=== PATIENT | female | born 1975 | race Hispanic/Latino ===

== ENCOUNTER 2019-03-20 13:40 | Emergency (ER) | payer MEDICAID, OTHER ==
[2019-03-20 14:31] LABS: APPEARANCE,URINE Cloudy (CLEAR); BILIRUBIN,URINE Negative (NEGATIVE); COLOR,URINE Yellow (YELLOW); GLUCOSE, URINE (UA) Negative (NEGATIVE); KETONES,URINE Negative (NEGATIVE); LEUKOCYTE ESTERASE ,URINE Trace (NEGATIVE); NITRATE,URINE Negative (NEGATIVE); OCCULT BLOOD,URINE Trace (NEGATIVE); PROTEIN,URINE Negative (NEGATIVE)
[2019-03-20 14:35] LABS: BASOPHILS % (AUTO) 0.5 % (0.0-5.0); HEMATOCRIT 32.8 % (36-48); LYMPHOCYTES % (AUTO) 18.3 % (21.0-51.0); MEAN CORPUSCULAR HEMOGLOBIN 21.7 pg (27.0-33.0); MEAN CORPUSCULAR HGB CONC 31.7 g/dL (32.0-36.0); MEAN CORPUSCULAR VOLUME 68.4 fL (79-99); MONOCYTES % (AUTO) 4.2 % (3.0-13.0); PLATELET COUNT (AUTO) 342 K/uL (130-400); RED CELL DISTRIBUTION WIDTH 17.3 % (11.0-15.5)
[2019-03-20 14:41] LABS: BACTERIA,URINE Moderate /HPF (None Seen); MUCUS,URINE Few LPF (None Seen)
[2019-03-20 14:46] LABS: CREATININE 0.8 mg/dL (0.5-1.5); POTASSIUM 3.5 mmol/L (3.5-5.1)
[2019-03-20 14:52] LABS: ALBUMIN 3.3 g/dL (3.5-5.0); BILIRUBIN,TOTAL 0.2 mg/dL (0.2-1.0); TOTAL PROTEIN, SERUM 7.4 g/dL (6.0-8.3)
[2019-03-20] MEDS ORDERED: KETOROLAC TROMETHAMINE 30MG/ML ONE (15:43)
== END 2019-03-20 17:26 | disposition home or self-care (01) ==
LOC: EDH 13:40
DX: K57.90 Diverticulosis of intestine, part unspecified, without perforation or abscess without bleeding (principal); I10 Essential (primary) hypertension
CPT/HCPCS: 36415; 74176; 76856; 80053; 81001; 81025; 85025; 96372; 99285; J1885

== ENCOUNTER 2020-11-06 13:36 | Emergency (ER) | payer SELFPAY ==
[~2020-11-06] VITALS: Ht 162.6 cm; Wt 81.6 kg
[2020-11-06 14:10] LABS: APPEARANCE,URINE Clear (CLEAR); BILIRUBIN,URINE Negative (NEGATIVE); COLOR,URINE Yellow (YELLOW); GLUCOSE, URINE (UA) 250 mg/dL (NEGATIVE); KETONES,URINE Trace mg/dL (NEGATIVE); LEUKOCYTE ESTERASE ,URINE Trace (NEGATIVE); NITRATE,URINE Negative (NEGATIVE); OCCULT BLOOD,URINE Moderate (NEGATIVE); PROTEIN,URINE POS 2+ mg/dL (NEGATIVE)
[2020-11-06 14:11] VITALS: BP 176/80
[2020-11-06 14:31] LABS: BASOPHILS % (AUTO) 0.3 % (0.0-5.0); EOSINOPHILS % (AUTO) 0.6 % (0.0-8.0); HEMATOCRIT 32.6 % (36-48); LYMPHOCYTES % (AUTO) 12.6 % (21.0-51.0); MEAN CORPUSCULAR HEMOGLOBIN 19.1 pg (27.0-33.0); MEAN CORPUSCULAR HGB CONC 28.5 g/dL (32.0-36.0); MEAN CORPUSCULAR VOLUME 66.8 fL (79-99); MONOCYTES % (AUTO) 5.8 % (3.0-13.0); NEUTROPHILS % (AUTO) 80.4 % (40.0-77.0); PLATELET COUNT (AUTO) 398 K/uL (130-400); RED BLOOD CELL COUNT(AUTO) 4.88 MIL/uL (4.00-5.50); RED CELL DISTRIBUTION WIDTH 19.3 % (11.0-15.5); WHITE BLOOD COUNT (AUTO) 15.4 K/uL (4.8-10.8)
[2020-11-06 14:32] LABS: BACTERIA,URINE Moderate /HPF (None Seen); MUCUS,URINE Many LPF (None Seen); SQUAMOUS EPITHELIAL CELL,UR Many /HPF (0-2)
[2020-11-06 14:34] LABS: CREATININE 0.7 mg/dL (0.5-1.5); POTASSIUM 3.4 mmol/L (3.5-5.1)
[2020-11-06 14:39] LABS: ALBUMIN 3.1 g/dL (3.5-5.0); BILIRUBIN,TOTAL 0.2 mg/dL (0.2-1.0); TOTAL PROTEIN, SERUM 7.4 g/dL (6.0-8.3)
[2020-11-06] MEDS ORDERED: IBUP-2070 PO (15:13)
[2020-11-06] MEDS ORDERED: CEPH500B PO (15:13)
[2020-11-06] MEDS ORDERED: LIDOCAINE HCL-MPF 1% 2ML VIAL ONE (15:37)
[2020-11-06] MEDS ORDERED: CEFTRIAXONE 1G VIAL ONE (15:38)
[2020-11-06 15:59] VITALS: BP 173/72
[2020-11-06] MEDS ORDERED: LIDOCAINE HCL-MPF 1% 2ML VIAL IM SCH (16:00)
[2020-11-06] MEDS ORDERED: CEFTRIAXONE 1G VIAL IM ONE (16:00)
== END 2020-11-06 16:04 | disposition home or self-care (01) ==
LOC: EDH 13:36
DX: N39.0 Urinary tract infection, site not specified (principal); R73.9 Hyperglycemia, unspecified; R53.83 Other fatigue; Z79.1 Long term (current) use of non-steroidal anti-inflammatories (NSAID)
CPT/HCPCS: 36415; 80053; 81001; 85025; 87088; 96372; 99283; J0696; J3490

== ENCOUNTER 2021-10-10 09:53 | Emergency (ER) | payer OTHER ==
[~2021-10-10] VITALS: Ht 160 cm; Wt 81.6 kg
[~2021-10-10 09:53] MED LIST: CEPH500B PO; IBUP-2070 PO
[2021-10-10 10:29] LABS: BASOPHILS % (AUTO) 0.3 % (0.0-5.0); EOSINOPHILS % (AUTO) 0.8 % (0.0-8.0); HEMATOCRIT 35.8 % (36-48); LYMPHOCYTES % (AUTO) 13.7 % (21.0-51.0); MEAN CORPUSCULAR HEMOGLOBIN 19.5 pg (27.0-33.0); MEAN CORPUSCULAR HGB CONC 29.1 g/dL (32.0-36.0); MEAN CORPUSCULAR VOLUME 67.2 fL (79-99); MONOCYTES % (AUTO) 3.8 % (3.0-13.0); NEUTROPHILS % (AUTO) 81.1 % (40.0-77.0); PLATELET COUNT (AUTO) 333 K/uL (130-400); RED BLOOD CELL COUNT(AUTO) 5.33 MIL/uL (4.00-5.50); RED CELL DISTRIBUTION WIDTH 20.9 % (11.0-15.5); WHITE BLOOD COUNT (AUTO) 11.5 K/uL (4.8-10.8)
[2021-10-10 10:40] LABS: CREATININE 0.7 mg/dL (0.5-1.5); POTASSIUM 3.9 mmol/L (3.5-5.1)
[2021-10-10 10:45] LABS: ALBUMIN 3.3 g/dL (3.5-5.0); BILIRUBIN,TOTAL 0.2 mg/dL (0.2-1.0); TOTAL PROTEIN, SERUM 7.9 g/dL (6.0-8.3)
[2021-10-10 11:08] LABS: APPEARANCE,URINE SL CLOUDY (CLEAR); BILIRUBIN,URINE NEGATIVE (NEGATIVE); COLOR,URINE YELLOW (YELLOW); GLUCOSE, URINE (UA) NEGATIVE (NEGATIVE); KETONES,URINE NEGATIVE (NEGATIVE); LEUKOCYTE ESTERASE ,URINE TRACE (NEGATIVE); NITRATE,URINE NEGATIVE (NEGATIVE); OCCULT BLOOD,URINE MODERATE (NEGATIVE); PROTEIN,URINE 30 mg/dL (NEGATIVE); UROBILINOGEN,URINE 0.2 mg/dL (0.2-1.0)
[2021-10-10 11:21] LABS: HCG,QUAL RESULT NEGATIVE (NEGATIVE)
[2021-10-10 11:24] LABS: BACTERIA,URINE Rare /HPF (None Seen); HYALINE CASTS, URINE 0-1 /LPF (0-1 /LPF); RBC,URINE 0-1 /HPF (0-1); SQUAMOUS EPITHELIAL CELL,UR Few /HPF (0-2)
[2021-10-10] MEDS ORDERED: ONDANSETRON 4MG INJ IVP ONE (12:30)
[2021-10-10] MEDS ORDERED: 0.9%NACL 1000ML 1,000 ML IV ONE (12:30)
[2021-10-10] MEDS ORDERED: MECLIZINE HCL 25 MG TABLET PO ONE (12:30)
[2021-10-10 13:25] VITALS: BP 136/63
[2021-10-10] MEDS ORDERED: MECL-226 PO (13:51)
[2021-10-10] MEDS ORDERED: ONDA4TAB10 PO (13:51)
== END 2021-10-10 14:07 | disposition home or self-care (01) ==
LOC: EDH 09:53
DX: H81.10 Benign paroxysmal vertigo, unspecified ear (principal); I10 Essential (primary) hypertension; Z79.1 Long term (current) use of non-steroidal anti-inflammatories (NSAID); Z79.899 Other long term (current) drug therapy
CPT/HCPCS: 36415; 80053; 81001; 81025; 85025; 93005; 96361; 96374; 99284; J2405; J7030

== ENCOUNTER 2023-02-19 10:02 | Emergency (ER) | payer OTHER, SELFPAY ==
[~2023-02-19] VITALS: Ht 167.6 cm; Wt 95.3 kg
[~2023-02-19 10:02] MED LIST changes: +MECL-226 PO; +ONDA4TAB10 PO
[2023-02-19] MEDS ORDERED: LACTATED RINGERS 1000ML 1,000 ML IV ONE (10:30)
[2023-02-19 10:33] LABS: APPEARANCE,URINE CLEAR (CLEAR); BILIRUBIN,URINE NEGATIVE (NEGATIVE); COLOR,URINE COLORLESS (YELLOW); GLUCOSE, URINE (UA) NEGATIVE (NEGATIVE); KETONES,URINE NEGATIVE (NEGATIVE); LEUKOCYTE ESTERASE ,URINE NEGATIVE Leu/uL (NEGATIVE); NITRATE,URINE NEGATIVE (NEGATIVE); OCCULT BLOOD,URINE MODERATE (NEGATIVE); PROTEIN,URINE NEGATIVE (NEGATIVE); UROBILINOGEN,URINE 0.2 mg/dL (0.2-1.0)
[2023-02-19 10:35] LABS: ADD UA MICROSCOPIC YES
[2023-02-19 10:36] LABS: BACTERIA,URINE RARE /HPF (None Seen); MUCUS,URINE RARE LPF (None Seen); SQUAMOUS EPITHELIAL CELL,UR RARE /HPF (0-2); WBC,URINE 0-1 /HPF (0-1)
[2023-02-19 10:37] LABS: AMPHET/METH SCREEN,URINE NEGATIVE (NEGATIVE); BARBITURATE SCREEN, URINE NEGATIVE (NEGATIVE); BENZODIAZEPINES SCREEN,URINE NEGATIVE (NEGATIVE); CANNABINOID SCREEN,URINE NEGATIVE (NEGATIVE); COCAINE SCREEN,URINE NEGATIVE (NEGATIVE); OPIATE SCREEN,URINE NEGATIVE (NEGATIVE); PHENCYCLIDINE SCREEN,URINE NEGATIVE (NEGATIVE)
[2023-02-19 10:49] LABS: BASOPHILS # (AUTO) 0.04 K/uL (0.00-0.20); BASOPHILS % (AUTO) 0.4 % (0.0-5.0); EOSINOPHILS # (AUTO) 0.14 K/uL (0.00-0.70); EOSINOPHILS % (AUTO) 1.4 % (0.0-8.0); HEMATOCRIT 29.4 % (36-48); IMMATURE GRANULOCYTE ABSOLUTE 0.05 K/uL (0-1); LYMPHOCYTES % (AUTO) 20.3 % (21.0-51.0); MEAN CORPUSCULAR HGB CONC 27.6 g/dL (32.0-36.0); MEAN CORPUSCULAR VOLUME 61.8 fL (79-99); MONOCYTES # (AUTO) 0.6 K/uL (0.1-1.0); MONOCYTES % (AUTO) 5.6 % (3.0-13.0); NEUTROPHILS # (AUTO) 7.1 K/uL (1.8-7.7); NEUTROPHILS % (AUTO) 71.8 % (40.0-77.0); PLATELET COUNT (AUTO) 312 K/uL (130-400); RED BLOOD CELL COUNT(AUTO) 4.76 MIL/uL (4.00-5.50); RED CELL DISTRIBUTION WIDTH 20.8 % (11.0-15.5); WHITE BLOOD COUNT (AUTO) 9.8 K/uL (4.8-10.8)
[2023-02-19 11:00] LABS: CREATININE 0.6 mg/dL (0.5-1.5); POTASSIUM 3.6 mmol/L (3.5-5.1)
[2023-02-19 11:05] LABS: ALBUMIN 3.2 g/dL (3.5-5.0); B-TYPE NATRIURETIC PEPTIDE 70 pg/mL (0-100); BILIRUBIN,TOTAL 0.2 mg/dL (0.2-1.0); TOTAL PROTEIN, SERUM 7.2 g/dL (6.0-8.3)
[2023-02-19] MEDS ORDERED: DIAZEPAM 2 MG TAB PO ONE (11:30)
[2023-02-19] MEDS ORDERED: FERR324T4 PO (11:31)
[2023-02-19] MEDS ORDERED: DOCU-116 PO (11:31)
[2023-02-19] MEDS ORDERED: CLONIDINE HCL 0.1 MG TABLET ONE (12:03)
[2023-02-19 12:26] VITALS: BP 163/80; PULSE 74; RESP 18; O2SAT 99
[2023-02-19] MEDS ORDERED: CLONIDINE HCL 0.1 MG TABLET PO ONE (12:30)
== END 2023-02-19 12:26 | disposition home or self-care (01) ==
LOC: EDH 10:02
DX: F41.9 Anxiety disorder, unspecified (principal); N93.8 Other specified abnormal uterine and vaginal bleeding; D64.9 Anemia, unspecified; I10 Essential (primary) hypertension; Z79.899 Other long term (current) drug therapy; Z98.890 Other specified postprocedural states
CPT/HCPCS: 99285; 96360; 71045; 82550; 84484; 80053; 83880; 80305; 85025; 36415; 93005; 81001; J7120

== ENCOUNTER 2024-05-14 10:22 | Emergency (ER) | payer BC ==
[~2024-05-14] VITALS: Ht 162.6 cm; Wt 85.7 kg
[~2024-05-14 10:22] MED LIST changes: +DOCU-116 PO; +FERR324T4 PO; +ONDA-243 PO; -ONDA4TAB10 PO
--- NOTE | 2024-05-14 11:08 | ERN ---
ED Note History of Present Illness Stated Complaint: TOOTHACHE Chief Complaint: Multiple Complaints Time Seen by MD: 10:27 Time Seen by Midlevel: 10:33 Dictation: 48-year-old female coming in complaining of tooth ache that started at 6:30 a.m. in the morning. Patient also states she is having chest pain, shortness a breath that also started along with the or Sunday. Patient states her blood pressure at home was in the 200s. Patient states before coming to the ER if she took her lisinopril. Denies having any recent fevers, nausea, vomiting, cough congestion. Allergies: Coded Allergies: No Known Allergies (Unverified Allergy, Unknown, 11/06/20) Home Meds Active Scripts Amoxicillin/Potassium Clav (Amox Tr-K Clv 875-125 mg Tab) 875 Mg-125 Mg Tablet, 1 TAB PO BID for 10 Days, #20 TAB 0 Refills Prov:HERMES LEWIS NP 05/14/24 Docusate Sodium (Colace) 100 Mg Capsule, 100 MG PO BID for 10 Days, #20 CAP Prov:ELLY ARANDA MD 02/19/23 Ferrous Sulfate (Ferrous Sulfate) 324 Mg (65 Mg Iron) Tablet.dr, 324 MG PO DAILY for 7 Days, #7 TAB Prov:ELLY ARANDA MD 02/19/23 Ondansetron (Ondansetron Odt) 4 Mg Tab.rapdis, 4 MG PO TID, #15 TAB Prov:RADHA CHISHOLMP 10/10/21 Meclizine HCl (Meclizine HCl) 12.5 Mg Tablet, 25 MG PO TID PRN for DIAPER RASH, #15 TAB Prov:RAHDA CHISHOLMP 10/10/21 Ibuprofen (Ibuprofen) 600 Mg Tablet, 600 MG PO Q6H PRN for PAIN, #15 TAB Prov:FARZAD ECHEVERRIA NP 11/06/20 Cephalexin Monohydrate (Keflex) 500 Mg Cap, 500 MG PO TID for 10 Days, #30 CAP 0 Refills Prov:FARZAD ECHEVERRIA NP 11/06/20 Past Medical History Past Medical History: Hypertension Surgical History: Social History: Negative Review of System Dictation Constitutional: Negative for fever,chills, and weight loss Eyes: Negative for injury, pain,redness, and discharge ENT: Negative for injury,pain or swelling, complaining of right upper tooth pain Cardiovascular: Complaining of chest pain, palpitations, and edema Respiratory: Complaining of shortness a breath, cough, and wheezing, Abdomen/GI: Negative for abdominal pain, nausea, vomiting, diarrhea, and constipation Back: Negative for injury and pain : Negative for injury, bleeding and discharge MS/Extremity: Negative for injury and deformity Skin: Negative for rash, and discoloration Neuro: Negative for headache, weakness, numbness, tingling, and seizure Psych: Negative for suicide ideation, homicidal ideation, and hallucinations Review of Systems: was completed Initial Vital Sign VS Vital Signs Date Time Temp Pulse Resp B/P (MAP) Pulse Ox O2 Delivery O2 Flow Rate FiO2 05/14/24 10:24 98.4 93 20 166/95 99 0 05/14/24 12:27 Room Air* 21 Physical Exam Dictation General: awake, alert, NAD Head/Face: Normocephalic, atraumatic Eyes: PERRL, EOMI, vision at baseline ENT: oral cavity clear, TMs clear, no signs of infection Neck: Trachea midline, supple, no nuchal rigidity Cardiovascular: RRR, normal S1/S2, No MRGs, no JVD Respiratory: CTAB, no respiratory distress, No rales or wheezes Abdomen: Soft, non-tender, non-distended, normal bowel sounds, no guarding or rebound. Skin: Warm, dry, normal turgor, no rash MS/Extremity: Pulses equal, no cyanosis, neurovascular intact, FROM Neuro: COAx4, GCS 15, strength 5/5, CN 2-12 intact, normal cerebellar exam, normal gait, Psych: Normal behavior, mood, and affect normal Results (Laboratory/Radiology) Laboratory/Radiology Laboratory Tests Test 05/14/24 11:22 White Blood Count 11.2 K/uL (4.8-10.8) H Red Blood Count 4.49 MIL/uL (4.00-5.50) Hemoglobin 8.6 g/dL (12.0-16.0) L Hematocrit 30.5 % (36-48) L Mean Corpuscular Volume 67.9 fL (79-99) L Mean Corpuscular Hemoglobin 19.2 pg (27.0-33.0) L Mean Corpuscular Hemoglobin Concent 28.2 g/dL (32.0-36.0) L Red Cell Distribution Width 18.6 % (11.0-15.5) H Platelet Count 426 K/uL (130-400) H Mean Platelet Volume 10.0 fL (7.5-10.5) Immature Granulocyte % (Auto) 0.4 % (0-1) Neutrophils (%) (Auto) 80.2 % (40.0-77.0) H Lymphocytes (%) (Auto) 14.2 % (21.0-51.0) L Monocytes (%) (Auto) 4.3 % (3.0-13.0) Eosinophils (%) (Auto) 0.5 % (0.0-8.0) Basophils (%) (Auto) 0.4 % (0.0-5.0) Neutrophils # (Auto) 9.0 K/uL (1.8-7.7) H Lymphocytes # (Auto) 1.6 K/uL (1.0-4.8) Monocytes # (Auto) 0.5 K/uL (0.1-1.0) Eosinophils # (Auto) 0.06 K/uL (0.00-0.70) Basophils # (Auto) 0.04 K/uL (0.00-0.20) Absolute Immature Granulocyte (auto 0.05 K/uL (0-1) Nucleated Red Blood Cells 0.0 % (0.0-0.19) Sodium Level 134 mmol/L (136-145) L Potassium Level 3.9 mmol/L (3.5-5.1) Chloride Level 99 mmol/L (101-111) L Carbon Dioxide Level 27 mmol/L (21-32) Blood Urea Nitrogen 11 mg/dL (7-18) Creatinine 0.7 mg/dL (0.5-1.0) Glomerular Filtration Rate Calc 107 mL/min (>90) Random Glucose 145 mg/dL (70-105) H Total Calcium 9.0 mg/dL (8.5-10.1) Troponin I High Sensitivity 6 ng/L (4-50) Labs Reviewed?: Yes EKG Comment: Date:05/14/24 Time:1058 Ventricular rate:89 MD interval:167 QRS duration:21 QT/QTc:359/438 EKG interpretation: Sinus rhythm, ST elevation, probable normal early repolarization pattern. Reviewed by ED Attending no STEMI interpreted by ER MD ED Course ED Course Orders Procedure Category Date Status Time Cbc With Differential LAB 05/14/24 In Process 10:38 Basic Metabolic Panel LAB 05/14/24 Complete 10:38 Troponin I High LAB 05/14/24 Complete Sensitivity 10:38 12 Lead Ekg Tracing- EKG 05/14/24 Complete Technical 10:38 Dexamethasone 4mg/Ml PHA 05/14/24 Complete 1ml Vial (Dexametha 10:38 Ketorolac PHA 05/14/24 Complete Tromethamine 15mg/Ml 10:38 Current Medications Medications (Trade) Dose Ordered Sig/Tessie Route PRN Reason Start Time Stop Time Status Last Admin Dose Admin Dexamethasone Sodium Phosphate (dexaMETHasone 4MG/ML 1ML VIAL) 6 mg ONCE STAT IM 05/14/24 10:38 05/14/24 10:40 DC 05/14/24 11:16 Ketorolac Tromethamine (toRADol) 15 mg ONCE STAT IM 05/14/24 10:38 05/14/24 10:40 DC 05/14/24 11:16 Vital Signs Date Time Temp Pulse Resp B/P (MAP) Pulse Ox O2 Delivery O2 Flow Rate FiO2 05/14/24 12:27 98.4 80 20 143/78 99 Room Air* 0 21 05/14/24 10:24 98.4 93 20 166/95 99 0 Medical Decision Making MDM MDM: 48-year-old female coming in complaining of tooth ache that started at 6:30 a.m. in the morning. Patient also states she is having chest pain, shortness a breath that also started along with the or Sunday. Patient states her blood pressure at home was in the 200s. Patient states before coming to the ER if she took her lisinopril. Denies having any recent fevers, nausea, vomiting, cough congestion. CBC shows mild leukocytosis of 11.2, mild anemia, hemoglobin is 8.6 and hematocrit is 30. Thrombocythemia could be related to dehydration. Chem istry shows mild hyponatremia at 1:34 a.m., normal kidney function. Mild hyperglycemia of 145. Troponin is negative. EKGs did not show any ST elevation or dysrhythmias. After pain medication patient states she feels much better. We will prescribe patient antibiotics and follow up with dentist outpatient. Patient verbalized understanding, answered all questions. Differential diagnosis: Tooth infection, anxiety, hypertensive emergency, [place] Rationale: Tests considered and ordered secondary to shared decision making include: Previous outside records reviewed: Old ER visits. Risk of complication and/or morbidity or mortality of patient management: None Medications-Per medication reconciliation Need for hospitalization: Patient does not meet criteria for hospitalization. Need for emergency major/minor surgery: No There are no social concerns with this patient. Prescription drug management Prescriptions will include symptomatic care Patient's prior external medical records from other ER visits were reviewed by me as indicated. Prior testing and results from previous visits were reviewed. Prior tests were taken into account with medical decision making and resource utilization, independent historian/historians were used to obtain complete medical history. I independently interpreted the test that were performed, results were reviewed by me and considered findings on radiology if ordered. Medical management and examination interpretation discussions were had by me with other qualified healthcare professionals as indicated for the patient's care. DX & DISP Disposition: Discharge Departure Impression: Primary Impression: Anemia Condition: Stable Scripts Amoxicillin/Potassium Clav (Amox Tr-K Clv 875-125 mg Tab) 875 Mg-125 Mg Tablet 1 TAB PO BID for 10 Days, #20 TAB 0 Refills Prov: HERMES LEWIS NP 05/14/24 Referrals: SELF,REFERRAL (PCP) Time of Disposition: 12:16 I have reviewed the case, and I agree with, Diagnosis and Plan I performed a substantive portion of the visit. I have reviewed and personally made and approve the management plan that is documented in the notes by myself with AVERY/resident. I acknowledged full responsibility for the patient's management plan. HERMES LEWIS NP May 14, 2024 11:08 JUVENTINO PRINCE DO May 14, 2024 12:30
[2024-05-14] MEDS: dexaMETHasone SOD PHOSPHATE 4 MG/ML 1ML VIAL IM STA (11:16)
[2024-05-14] MEDS: ketOROlac 15MG/ML VIAL (15MG/ML) IM STA (11:16)
--- NOTE | 2024-05-14 11:19 | EKG ---
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
[2024-05-14 11:32] LABS: BASOPHILS # (AUTO) 0.04 K/uL (0.00-0.20); BASOPHILS % (AUTO) 0.4 % (0.0-5.0); EOSINOPHILS # (AUTO) 0.06 K/uL (0.00-0.70); EOSINOPHILS % (AUTO) 0.5 % (0.0-8.0); HEMATOCRIT 30.5 % (36-48); IMMATURE GRANULOCYTE ABSOLUTE 0.05 K/uL (0-1); LYMPHOCYTES # (AUTO) 1.6 K/uL (1.0-4.8); LYMPHOCYTES % (AUTO) 14.2 % (21.0-51.0); MEAN CORPUSCULAR HEMOGLOBIN 19.2 pg (27.0-33.0); MEAN CORPUSCULAR HGB CONC 28.2 g/dL (32.0-36.0); MEAN CORPUSCULAR VOLUME 67.9 fL (79-99); MONOCYTES # (AUTO) 0.5 K/uL (0.1-1.0); MONOCYTES % (AUTO) 4.3 % (3.0-13.0); NEUTROPHILS % (AUTO) 80.2 % (40.0-77.0); PLATELET COUNT (AUTO) 426 K/uL (130-400); RED BLOOD CELL COUNT(AUTO) 4.49 MIL/uL (4.00-5.50); RED CELL DISTRIBUTION WIDTH 18.6 % (11.0-15.5); WHITE BLOOD COUNT (AUTO) 11.2 K/uL (4.8-10.8)
[2024-05-14 11:40] LABS: CREATININE 0.7 mg/dL (0.5-1.0); POTASSIUM 3.9 mmol/L (3.5-5.1)
[2024-05-14] MEDS ORDERED: AMOX1TAB16 PO (12:16)
[2024-05-14 12:27] VITALS: BP 143/78; PULSE 80; RESP 20; TEMP 98.4; O2SAT 99
== END 2024-05-14 12:36 | disposition home or self-care (01) ==
LOC: EDH 10:22
DX: D64.9 Anemia, unspecified (principal); K08.89 Other specified disorders of teeth and supporting structures; I10 Essential (primary) hypertension; Z79.899 Other long term (current) drug therapy; Z98.890 Other specified postprocedural states
CPT/HCPCS: 99284; 84484; 80048; 85025; 36415; 96372 ×2; 93005; J1100; J1885